=== PATIENT | female | born 1970 | race Caucasian/White ===

== ENCOUNTER 2025-01-18 03:10 | Inpatient (IN) | payer MEDICAID ==
[~2025-01-18] VITALS: Ht 154.9 cm; Wt 70.0 kg
[2025-01-18] VITALS (23 sets, daily range): BP systolic 102–134; BP diastolic 58–76; PULSE 84–136; RESP 16–41; TEMP 97.3–100.2; O2SAT 94–98
--- NOTE | 2025-01-18 03:19 | Physician Documentation ---
History of Present Illness ~ Chief Complaint: Chest Pain Stated Complaint: CHEST PAIN Time Seen by MD: 03:18 HPI Patient presents to the emergency room sent from [facility] with chief complaint of chest pain. Workup there resulted in showing moderate pericardial effusion. Recent imaging confirms that this effusion is new over the past 1-2 weeks. The transferred here for further investigation and possible intervention. Patient denies history of atrial fibrillation however EMS reports that patient did have a run of atrial fibrillation EN route which was abolished with metoprolol Medication Reconciliation Allergies: Coded Allergies: No Known Allergies (Unverified , 01/18/25) Scheduled Amlodipine Besylate (Amlodipine Besylate), 1 TAB PO DAILY, (Reported) Fluoxetine HCl (Fluoxetine HCl), 1 TAB PO DAILY, (Reported) Furosemide (Furosemide), 1 TAB PO DAILY, (Reported) Potassium Chloride* (K-Dur*), 1 TAB PO DAILY, (Reported) Miscellaneous Medications Aspirin (Adult Low Dose Aspirin EC), (Reported) Atorvastatin Calcium (Atorvastatin Calcium), (Reported) [Albuterol], (Reported) Review of Systems ROS All review of systems negative except as per HPI Physical Exam Vital Signs: Temperature: 98.2, Source: Oral, Heart Rate: 105, Respiratory Rate: 18, BP: 97/77, Pulse Oximetry: 96, Weight: 75.910 Oxygen Flow Rate: 0 Physical Exam General: Patient is awake, alert, oriented x4 in no acute distres Head: Normocephalic and atraumatic. Eyes: Conjunctival normal. EOMI. PERRL. ENT: Mucous membranes moist. Neck: Supple, trachea is midline. Chest: Clear to auscultation bilaterally without rales, rhonchi, or wheezes. There is no accessory muscle use or retractions. Cardiac: Tachycardic and regular without murmurs, gallops, or rubs. Abd: Soft, nondistended, nontender, with normoactive bowel sounds. No guarding, rebound, or rigidity. Progress Results/Orders Results/Orders Orders - PORTER DELGADO MD Page Hospitalist (01/18/25 03:26) Fill Out Med Reconciliation (01/18/25 03:26) Completed Orders - PORTER DELGADO MD Cbc/Diff (01/18/25 03:26) MG (01/18/25 03:26) BMP (01/18/25 03:26) Pt Inr (01/18/25 03:26) Hs Troponin I W Calculations (01/18/25 03:26) Procalcitonin (01/18/25 04:04) Vital Signs 01/18/25 01/18/25 01/18/25 01/18/25 03:11 03:18 03:25 04:00 Temp 98.2 Pulse 105 98 103 Resp 18 18 20 B/P (MAP) 97/77 96/48 (64) 102/62 (75) Pulse Ox 96 97 96 O2 Flow Rate 0 0 0 01/18/25 05:00 Pulse 101 Resp 20 B/P (MAP) 115/66 (82) Pulse Ox 96 O2 Flow Rate 0 Laboratory Tests Test 01/18/25 03:15 White Blood Count 18.6 H Red Blood Count 4.77 Hemoglobin 12.9 Hematocrit 38.4 Mean Corpuscular Volume 80.4 Mean Corpuscular Hemoglobin 26.9 L Mean Corpuscular Hemoglobin Concent 33.5 Red Cell Distribution Width 12.9 Platelet Count 314 Mean Platelet Volume 9.0 Neutrophils (%) (Auto) 78.9 H Lymphocytes (%) (Auto) 9.8 L Monocytes (%) (Auto) 10.9 Eosinophils (%) (Auto) 0 Basophils (%) (Auto) 0.4 Neutrophils # (Auto) 14.7 H Lymphocytes # (Auto) 1.8 Monocytes # (Auto) 2.0 H Eosinophils # (Auto) 0.0 Basophils # (Auto) 0.1 CBC Comment Prothrombin Time 14.1 H INR International Normalized Ratio 1.4 Coagulation Comments Sodium Level 137 Potassium Level 4.4 Chloride Level 104 Carbon Dioxide Level 25.0 Anion Gap 8 Blood Urea Nitrogen 16 Creatinine 0.69 Estimated GFR/1.73 m2 89 BUN/Creatinine Ratio 23.2 H Glucose Level 123 H Calcium Level 8.6 Magnesium Level 2.1 Troponin I High Sensitivity 12 Albumin 2.1 L Procalcitonin 0.45 Chemistry Comments EKG/XRAY/CT/US/VASC/MRI EKG : Additional Comment EKG interpreted by myself shows time of 0317, rate 97, sinus rhythm, normal axis, no ST changes, T-wave inversion in lead V1 and V2 Medical Decision Making Additional information obtaine: old records Findings Patient presents to the emergency room for evaluation of pericardial effusion sent from [facility] Patient both signs are reassuring and he had not believe she is in danger of any imminent cardiac tamponade we will admit for further investigation and possible intervention. Heart Score: 3 Differential Dx:Considerations: Include: angina, aortic dissection, chest wall pain, cholelithiasis, CHF, costochondritis, esophageal reflux/spasm, gastritis, herpes zoster, myocardial infarction, pericarditis, pleuritis, pancreatitis, pneumonia, pneumothorax, pulmonary embolus, other Departure Admitted to Inpatient Unit: yes, to hospitalist Impression: Primary Impression: Chest pain Additional Impression: Pericardial effusion Condition: Guarded Referrals: NO PRIMARY CARE PROVIDER (PCP) Critical Care Note Total Time (mins): 30 Critical Care Note The very real possibility of a deterioration of this patient's condition required the highest level of my preparedness for sudden, emergent intervention. I provided critical care services, which included medication orders, frequent reevaluations of the patient's condition and response to treatment, ordering and reviewing test results, and discussing the case with various consultants. Excludes time spent performing separately billable procedures. The critical care time associated with the care of the patient was 30 minutes not counting procedures Signature Scribe Signature: No scribe Attestation: The note accurately reflects work and decisions made by me.Porter Delgado MD 01/18/25 03:26 PORTER DELGADO MD Jan 18, 2025 03:18
[2025-01-18] MEDS ORDERED: FURO20TA4 PO (03:25)
[2025-01-18] MEDS ORDERED: FLUO20TA28 PO (03:25)
[2025-01-18] MEDS ORDERED: POTA-207 PO (03:25)
[2025-01-18] MEDS ORDERED: ASPI-500 (03:25)
[2025-01-18] MEDS ORDERED: ALBUTEROL (03:25)
[2025-01-18] MEDS ORDERED: ATOR40TA72 (03:25)
[2025-01-18] MEDS ORDERED: AMLO5TAB16 PO (03:25)
[2025-01-18 03:39] LABS: CREATININE 0.69 MG/DL (0.40-0.90); TOTAL CARBON DIOXIDE 25.0 MMOL/L (24-32); eCRCL 71 ML/MIN; eGFR 89 ML/MIN
[2025-01-18 03:40] LABS: INR 1.4 INR
[2025-01-18 03:44] LABS: MEAN PLATELET VOLUME 9.0 FL (7.4-10.4); RED CELL DISTRIBUTION WIDTH 12.9 % (11.5-14.5)
[2025-01-18] MEDS ORDERED: ondansetron/PF 4mg/2ml inj IV PRN (05:40)
[2025-01-18] MEDS ORDERED: magnesium sulf-water 4G/100mL 100 ML IV PRN (05:40)
[2025-01-18] MEDS ORDERED: magnesium sulf-water 2g/50mL 50 ML IV PRN (05:40)
[2025-01-18] MEDS ORDERED: magnesium Cl slow-release 64mg tablet PO PRN (05:40)
[2025-01-18] MEDS ORDERED: potassium Cl 40MEQ/1/2NS 520ml 520 ML IV PRN (05:40)
[2025-01-18] MEDS ORDERED: potassium Cl 20 mEq SR tablet PO PRN ×2 (05:40)
--- NOTE | 2025-01-18 05:59 | HISTORY AND PHYSICAL-Residence ---
History & Physical Providers to CC Resident Creating Document: VIOLETA GUZMÁN RES CC: RENATO SIMS MD ~ History of Present Illness Primary Medical Doctor: Dr. Hola Siddiqui Reason for Admit\Complaint: Chest pain for a month History of Present Illness 54-year-old female with past medical history of congestive heart failure, methamphetamine abuse, hypertension, hyperlipidemia, CVA with no residual deficit came as a transfer from [facility] for further evaluation of pericardial effusion Patient initially presented to the ER of the transferring facility for chest pain for a month. She describes chest pain over the center of the chest, dull, not radiating to shoulders or jaws, aggravated with exertion and relieved with rest. Chest pain is associated with cough which is dry cough. She noticed increase in cough when lying down. At the same time patient also notices shortness of breaths which progressive from class one to class three. She is unable to two her less than usual activities like walking to a washroom without feeling short of breath. She does have orthopnea. Denies pedal edema She also had low-grade fevers for almost a month. She said fever last for 20-30 mins before defervescence. Denies any arthralgias or myalgias or rash. No history of exposure to sick persons. No history of recent contact. She has a dog at her home Denies palpitations however she had occasional lightheadedness with no falls Denies previous history of connective tissue disorders. History of an 40 years ago in 1st trimester. No family history of connective tissue disorders. History of COPD in mom Course at the transferring facility -for chest pain evaluation troponins were negative, proBNP was mildly elevated to 317, WBC 16.9 with D-dimer 7.93. CTA chest done which showed no pulmonary embolism but [id number] pericardial effusion. -she also had AFib with RVR with heart rates of 150-IV metoprolol 5 mg given and converted to sinus -transferred here for Cardiology evaluation and echo Allergies: Coded Allergies: No Known Allergies (Unverified , 01/18/25) Home Medications Home Medications Active Reported Fluoxetine HCl 20 Mg Tablet 1 Tab PO DAILY Amlodipine Besylate 5 Mg Tablet 1 Tab PO DAILY Furosemide 20 Mg Tablet 1 Tab PO DAILY Adult Low Dose Aspirin EC (Aspirin) 81 Mg Tablet. [Albuterol] Atorvastatin Calcium 40 Mg Tablet K-Dur* (Potassium Chloride) 20 Meq Tab.prt.sr 1 Tab PO DAILY Past Medical History Past Medical History History of heart failure Hypertension Hyperlipidemia History of CVA- right-sided brain bleed five years ago Past Surgical History Surgical History Comment Hysterectomy Cholecystectomy Past Social History Social History Comment Ex-smoker, quitted smoking three months ago, history of 20 pack years Denies alcohol intake, last alcohol intake was a year ago Admits to methamphetamine smoking, last done three months ago Denies other illicit drug use/injectable drug use Currently homeless, lives in a in [facility] Constitutional: Patient is having chronic fevers for the past one month associated with decreased appetite, lightheadedness N HEENT: No blurring of the vision, No sore throat, epistaxis, tinnitus Cardiovascular: Positive for chest pain/discomfort, shortness of breath, cough, Respiratory: No hemoptysis Gastrointestinal: No abdominal pain, nausea, vomiting. No diarrhea, constipation, melena. Genitourinary: No frquency, urgency, incontinence, nocturia. No dysuria, hematuria Musculoskeletal: No arthralgia, myalgia Endocrine: No, polydipsia, polyuria. No heat or cold intolerance Neurologic: No headache, vertigo. No weakness, numbness or tingling of extremities Psychiatric: No hallucinations/delusions, no anhedonia, no suicidal ideation\ Hematologic: No bleeding or bruises Reviewed in full. All negative except for pertinent positives in HPI Exam Vitals: Vital Signs Date Time Temp Pulse Resp B/P (MAP) Pulse Ox O2 Delivery O2 Flow Rate FiO2 01/18/25 03:25 98 20 96/48 (64) 97 0 01/18/25 03:11 98.2 General: General: Pleasant adult female, appears to be in mild respiratory distress when talking Head: Normocephalic with an atraumatic Eyes: Pupils- 3mm, reacting to light, conjunctiva- anicteric Nose and throat: No polyps, septum- normal, no mucosal ulcers Neck: Supple, , no carotid bruit Respiratory: No use of accessory muscles of respiration, bilateral decreased breath sounds present, mild wheezing present on both sides Cardiac: S1-S2 heard, rythm regular, not able to hear any murmurs Abdomen: non distended, no tenderness, no organomegaly, bowel sounds- heard Extremities: no clubbing, no pedal edema, no deformities, peripheral pulses- 2+ Skin: warm and dry, no rash, no purpura Neuro: No focal deficit, gross cranial nerve exam- normal Diagnostic Data Last Recorded Lab Results: 01/18/2531401/[id number]/[id number] Diagnostic Data: Laboratory Tests Test 01/18/25 03:15 Prothrombin Time 14.1 SECONDS (9.0-12.0) H INR International Normalized Ratio 1.4 INR Coagulation Comments Advance Care Planning Advanced Care plannin - 30 Minutes (Code status is discussed with her and she opted for full code with her mother as alternate POA) Additional Plan 54-year-old female with past medical history of congestive heart failure, methamphetamine abuse, hypertension, hyperlipidemia, CVA with no residual deficit came as a transfer from [facility] for further evaluation of pericardial effusion. She presented with one month duration of chest pain dull, center of chest, nonradiating, nocturnal cough, exertional dyspnea, class three, orthopnea, low- grade fevers for a month. Course at the transferring facility -for chest pain evaluation troponins were negative, proBNP was mildly elevated to 317, WBC 16.9 with D-dimer 7.93. CTA chest done which showed no pulmonary embolism but [id number] pericardial effusion. -she also had AFib with RVR with heart rates of 150-IV metoprolol 5 mg given and converted to sinus Pericardial effusion -EKG-sinus rhythm, normal voltage complexes, inversions in V2 V3, RSR-in V1, deep S-wave in V4 V5, troponins negative -currently hemodynamically stable with with blood pressure of 106/60 mm hg -2D echo pending -follow up on TSH, RAMON, HIV testing -monitor hemodynamics -Cardiac consult with Dr.Mo Linn initiated, they recommended to inform Dr. Romero, Dr. Romero informed Chronic fever for evaluation Possible infective endocarditis -presented with chronic fevers, however no symptoms of myalgias or arthralgias rash. -WBC-18.6 with neutrophilic leukocytosis, procalcitonin 0.45, follow up on ESR, CRP -pending urinalysis, urine cultures, blood cultures, chest x-ray -empirically started on IV Rocephin 2 g once daily and IV vancomycin pharmacy to dose for possible infectious endocarditis New onset AFib with RVR Chads Vasc-5 -Currently in sinus -monitor heart rate, follow up on echo and based on ejection fraction if patient reverted back to AFib and start on either beta blockers or calcium channel blockers -based on her CHADS-VASc score she needs anticoagulation -in anticipation of pericardiocentesis, not started on DOAC. Transitioned to DOAC after pericardiocentesis. Currently on heparin 5000 subQ b.i.d. Chronic heart failure with unknown ejection fraction -follow up on echo, currently euvolemic with soft blood pressure -home Lasix on hold Hypertension -patient was taking amlodipine at home, currently on hold in view of soft blood pressures Hyperlipidemia -follow up on lipid panel -continue home dose of atorvastatin History of CVA with no focal residual deficits -currently no symptoms Methamphetamine abuse -patient stated she stopped three months ago -social work job titles and substance abuse navigator consulted Nicotine abuse -ex-smoker, quitted three months ago with history of 20 pack years Code Status: Full code Line/tube: PIV DVT prophylaxis: Heparin Nutrition: Heart healthy diet PT: Yes Prognosis: Guarded Disposition: Continue care in PCU, Cardiac consult Pending, med rec pending Violeta Guzmán MD IM PGY-3 resident Attending Physician Attestation Evaluation via HIPAA compliant A/V device. I discussed the case with the resident and I agree with the resident's documentation. 54-year-old woman with a history of polysubstance abuse, congestive heart failure, essential hypertension, dyslipidemia and prior stroke without residual deficits who now presents from an outside hospital with chest pain. Diagnostic evaluation reveals a small-moderate size pericardial effusion without tamponade physiology and new-onset atrial fibrillation; the latter converted to SR with a single dose of metoprolol. The treatment plan includes: Repeat echocardiogram to assess for an increase in size of the pericardial effusion. HIV, PPD/Quantiferon, Coxsackie and screening autoimmune serologies. Mammogram and colonoscopy if clinically indicated to screen for malignancy. Cardiology evaluation with, at their discretion, diagnostic/therapeutic pericardiocentesis. Time spent 50 minutes. Date of Service: Jan 18, 2025 Billing Provider: RENATO SIMS MD, HARIVARSHA, HUBER Jan 18, 2025 05:59 RENATO SIMS MD Jan 18, 2025 07:03
--- NOTE | 2025-01-18 06:15 | ELECTROCARDIOGRAPH REPORT ---
[facility] Test Date: 2025-01-18 Test Time: 03:17:27 Pat Name: KAMARI JOHNSON Department: EMERGENCY ROOM Room: [place] [address] Gender: F Imaging Technologist: PETERSON : 1970 Requested By: RENATO SIMS Order Number: [id number] Reading MD: Dr. JADA Díaz Measurements Intervals [place] Rate: 97 P: 45 WI: 153 QRS: 93 QRSD: 82 T: 33 QT: 361 QTc: 459 Interpretive Statements Sinus rhythm Borderline right axis deviation Borderline T abnormalities, anterior leads Electronically Signed On 01-18-2025 17:28:[address] JADA Díaz Please click the below link to view image of tracing.
[2025-01-18] MEDS: PERFLUTREN PROTEIN-A MICROSPHR (Optison) 0.22 MG/ML 3ML VIAL IV ONE (06:19)
--- NOTE | 2025-01-18 06:33 | RADIOLOGY REPORT ---
MEDICAL RECORDS NUMBER: [id number] PROCEDURE: DI CHEST,SINGLE VIEW DATE: 01/18/2025 06:15 AM HISTORY: pericardial effusion Views:1 COMPARISON: None FINDINGS/IMPRESSION: Lungs: The lungs are clear. Mediastinum: The heart size appears prominent. Mediastinal structures otherwise appear unremarkable.. Skeletal: The skeletal structures appear unremarkable.
[2025-01-18] MEDS: K and/or MAG REPLACEMENT MC SCH (06:39)
[2025-01-18] MEDS: VANCOMYCIN 2GM/400ML H20 (PEG) 400 ML IV ONE (06:39)
[2025-01-18] MEDS: docusate sod 100mg capsule PO SCH (06:39)
[2025-01-18] MEDS: CefTRIAXone 2gm/D5W 50ml BAG 50 ML IV SCH (06:39)
[2025-01-18 07:29] LABS: CHOL/HDL RATIO 2.3 (0.00-4.99); CREATININE 0.78 MG/DL (0.40-0.90); LDL CHOLESTEROL 45 MG/DL (50-100); PRO BRAIN NATRIURETIC PEPTIDE 1416 PG/ML (0-125); TOTAL CARBON DIOXIDE 26.6 MMOL/L (24-32); eCRCL 63 ML/MIN; eGFR 77 ML/MIN
[2025-01-18] MEDS ORDERED: enoxaparin 40mg/0.4ml syringe SUBCUT SCH (08:00)
[2025-01-18] MEDS: heparin, porcine 5000 units/ml vial SQ SCH (08:00)
[2025-01-18 08:28] LABS: LEUKOCYTE ESTERASE ,URINE NEGATIVE (Neg); NITRITES, URINE NEGATIVE (Neg); OCCULT BLOOD,URINE TRACE-INTACT (Neg)
[2025-01-18 08:29] LABS: UA COLLECTION TYPE VOIDED
[2025-01-18] MEDS: ipratropium/albuterol 3ml nebule NEB PRN (08:34)
[2025-01-18 08:38] LABS: URINE AMPHETAMINE SCREEN NEGATIVE (Neg); URINE BARBITUATE SCREEN NEGATIVE (Neg); URINE BENZODIAZEPINES SCREEN NEGATIVE (Neg); URINE CANNABINOID SCREEN POSITIVE (Neg); URINE COCAINE SCREEN NEGATIVE (Neg); URINE METHADONE SCREEN NEGATIVE (Neg); URINE OPIATE SCREEN NEGATIVE (Neg); URINE PHENCYCLIDINE SCREEN NEGATIVE (Neg)
[2025-01-18 08:42] LABS: MUCUS STRANDS FEW /LPF (Neg); SQUAMOUS EPITHELIAL CELL,UR MODERATE /LPF (FEW)
[2025-01-18 08:49] LABS: HIV ANTIBODY 1&2 RAPID NON-REACTIVE (Neg)
[2025-01-18] MEDS: diazepam inj 5 MG/ML inj. IV ONE ×2 (08:49→23:41)
--- NOTE | 2025-01-18 12:57 | CONSULTATION REPORT ---
Cardiac Consultation Report Providers to CC ~ Subjective Subjective Cardiology consultation: Pericardial effusion sinus tachycardia shortness of breath. Chest pain for one month duration. Patient has positive urine culture for fentanyl and THC. Records unclear if she received fentanyl loud she recalls receiving Ativan. Denies methamphetamine use in the recent past. She is a fair historian appears very anxious and agitated and she has had a prior cerebral bleed by the old records. Thyroid has returned showing that she is hyperthyroid. Echocardiogram has been reviewed RVSP pressure is 85 right ventricle is much larger than the left and hypokinetic left ventricular contractility is normal. The posterior pericardial effusion no anterior. 1 cm or less. No echo cardiographic evidence of tamponade. CT pulmonary angio and CT [facility] abdomen at [facility] were reported as unremarkable. Medications are fluoxetine amlodipine furosemide. Aspirin. Atorvastatin potassium. History of right hemisphere brain bleed five years ago by records hypertension hyperlipidemia. History of heart failure. Status post hysterectomy and cholecystectomy from old records. Was last at [facility]. Objective Vitals Vital Signs Date Time Temp Pulse Resp B/P (MAP) Pulse Ox O2 Delivery O2 Flow Rate FiO2 01/18/25 12:08 36 Nasal Cannula 2.0 21 01/18/25 12:00 115 117/69 (85) 01/18/25 10:50 94 01/18/25 10:10 100.2 Lab Results: 01/18/25 0315 01/18/25 0638 Objective She is on oxygen tachypneic restless uncomfortable complaining of chest pain non stopped. Troponins are normal Carotid no bruit chest clear to auscultation percussion heart S3 gallop. No pericardial rub. No pleural rub. Peripheral edema peripheral pulses are intact. Alert oriented restless with anterior chest pain. Worse when lying down. Coagulation Studies Laboratory Tests Test 01/18/25 03:15 Prothrombin Time 14.1 SECONDS (9.0-12.0) H INR International Normalized Ratio 1.4 INR Coagulation Comments Problem\Assessment\Plan Additional Plan Impression: Symptomatic pericarditis and symptomatic hyper thyroidism. No clinical evidence of pericardial tamponade. Patient has pulmonary hypertension with right ventricular enlargement and hypokinesis consistent with pulmonale. Recommendation: Initiate Toradol treatment anti-inflammatories and methimazole to control her pericarditis and hyperthyroidism. Ideally she should have an endocrinology consultation which I do not think is available in hospital setting. She empirically received a dose of vancomycin based on her past history of drug use. Would perform three sets of blood cultures. No urgent need of pericardiocentesis at this time. Furthermore she is so restless that she would not be able to hold still for a procedure. Would require anesthesia. YOSEPH CHAMBERLAIN MD Jan 18, 2025 12:57
[2025-01-18] MEDS: propranolol 10mg tablet PO SCH (15:37)
--- NOTE | 2025-01-18 15:51 | RADIOLOGY REPORT ---
CLINICAL INDICATION: Rheumatoid arthritis TECHNIQUE: Bilateral DI HAND,LIMITED (AP/LAT), DI HAND,LIMITED (AP/LAT) Comparison: None FINDINGS/IMPRESSION: : There is no evidence of acute fracture or dislocation. Soft tissues are unremarkable.
[2025-01-18] MEDS: VANCOmycin 1250MG/NS 250ml Bag 250 ML IV SCH (17:14)
--- NOTE | 2025-01-18 17:41 | CARDIOLOGY REPORT ---
APPROVED REPORT EXAM: Comprehensive 2D, Doppler, and color-flow Echocardiogram. Patient Location: ER 3 Blood Pressure: 92/51 mmHg Heart Rate: 103 bpm Rhythm: SINUS TACHYCARDIA Indications PERICARDIAL EFFUSION CONGESTIVE HEART FAILURE METHAMPHETAMINE USE HYPERTENSION HYPERLIPIDEMIA CHEST PAIN X1 MONTH Bioinformatics Assistant: Luther Romero MD (consult) Previous echo: none 2D Dimensions RVDd 4.6 cm LA Diam 5.9 cm RA Major 6.1 cm RA Minor 5.4 cm LVOT Diameter 2.21 (1.8-2.4cm) Ao Asc Diam. 3.50 cm IVC 21.01 mm CO 6.0 L/min M-Mode Dimensions Left Atrium(MM) 3.71 (2.5-4.0cm) IVSd 0.95 (0.7-1.1cm) LVDd 4.00 (4.0-5.6cm) Aortic Root 3.21 (2.2-3.7cm) PWd 0.86 (0.7-1.1cm) Aortic Cusp Exc 2.14 (1.5-2.0cm) IVSs 1.44 cm LVDs 2.10 (2.0-3.8cm) FS (%) 47 % PWs 1.28 cm ESV(Teich) 14.4 ml LVEF(%) 79 (>50%) Biplane 2D LA Volumes LA ESV Index 31.40 mL/m2 Aortic Valve AoV Peak Dixon. 173.8 cm/s AoV VTI 28.9 cm AO Peak GR. 12.1 mmHg AO Mean GR. 8 mmHg LVOT VTI 26.49 cm LVOT Peak Dixon. 151.1 cm/s SYED(VTI)/BSA 3.53 cm2/m2 SYED (VTI) 3.53 cm2 AV DI 0.92 % Mitral Valve MV E Velocity 93.4 cm/s MV Peak Gr. 5 mmHg MV DECEL TIME 172 ms MV A Velocity 65.8 cm/s MV PHT 56 ms E/A Ratio 1.4 MVA (PHT) 3.93 cm2 MV VMax 116.7 cm/s TDI Medial E' P. V 10.18 cm/s E/Medial E' 9.2 Tricuspid Valve TR P. Velocity 432 cm/s RAP ESTIMATE 10 mmHg TR Peak Gr. 75 mmHg RVSP 85 mmHg Pulmonary Vein S1 Velocity 57.1 cm/s D2 Velocity 48.2 cm/s PVa Velocity 34.6 cm/s PVa Duration 88 msec LEFT VENTRICLE Normal LV size and wall thickness. Overall systolic function is hyperdynamic. LVEF is 75-80%. RIGHT VENTRICLE RV is moderately dilated with mildly reduced systolic function. RVSP is estimated at 85 mmHg. ATRIA LA size is normal. AORTIC VALVE Trileaflet AV appears mildly sclerotic without stenosis or insufficiency. MITRAL VALVE Mild MV annular calcification without stenosis. Trace regurgitation. TRICUSPID VALVE TV appears structurally normal with moderate septally-directed regurgitation. PULMONIC VALVE Normal PV without stenosis, physiologic insufficiency. GREAT VESSELS The aortic root is normal in size. The ascending aorta is normal in size. IVC is dilated and collapses greater than 50% with inspiration. PERICARDIUM Mild circumferential pericardial effusion with beginning signs of hemodynamic compromise. MV respiratory variation visualized, although difficult to evaluate due to patient's fast breathing rate. No RV diastolic collapse visualized, however RA collapse is present. Other Information Study Quality: Adequate
[2025-01-18] MEDS ORDERED: VANCOMYCIN 1GM 200ML H20 (PEG) 200 ML IV SCH (18:00)
[2025-01-18] MEDS: ketorolac trometh 30MG/ML vial 30 MG/ML VIAL IV SCH (19:19)
--- NOTE | 2025-01-18 22:29 | ELECTROCARDIOGRAPH REPORT ---
[facility] Test Date: 2025-01-18 Test Time: 22:26:26 Pat Name: KAMARI JOHNSON Department: [facility] 3S Patient ID: [id number] Room: [place] [address] A Gender: F Extension Clerk: : 1970 Requested By: RUSSELL MOTA Order Number: [id number] Reading MD: Dr. Rebecca Linn Measurements Intervals [place] Rate: 129 P: 0 UT: 0 QRS: 91 QRSD: 83 T: 66 QT: 384 QTc: 563 Interpretive Statements Atrial flutter/fibrillation ? Inferoposterior infarct, acute (LCx) Electronically Signed On 01-19-2025 6:52:[address] Rebecca Linn Please click the below link to view image of tracing.
[2025-01-18] MEDS: metoprolol tartrate 1mg/ml inj IV ONE (22:36)
[2025-01-19] VITALS (22 sets, daily range): BP systolic 93–121; BP diastolic 47–72; PULSE 73–91; RESP 15–42; TEMP 96.9–98.2; O2SAT 94–97
[2025-01-19 06:50] LABS: MEAN PLATELET VOLUME 8.9 FL (7.4-10.4); RED CELL DISTRIBUTION WIDTH 12.9 % (11.5-14.5)
[2025-01-19 07:00] LABS: INR 1.3 INR
[2025-01-19 07:27] LABS: CREATININE 0.60 MG/DL (0.40-0.90); PHOSPHORUS 3.3 MG/DL (2.3-4.5); TOTAL CARBON DIOXIDE 27.0 MMOL/L (24-32); eCRCL 82 ML/MIN; eGFR > 90 ML/MIN
--- NOTE | 2025-01-19 15:17 | PROGRESS NOTE ---
Progress Note Cardiology Providers to CC ~ Subjective Subjective Cardiology progress note: Diagnosis one pericarditis 2. Hyperparathyroidism consider viral induced 3. RVSP 85 mm Hg with right ventricular enlargement and hypokinesis. Symptoms improved since initiation of therapy. Labs improved. Objective Result Diagram: 01/19/25 0632 01/19/25 0632 Objective Tachypnea improved heart rate improved. She has been improved. Cardiovascular examination unchanged. Coagulation Studies Laboratory Tests Test 01/19/25 06:32 Prothrombin Time 12.8 SECONDS (9.0-12.0) H INR International Normalized Ratio 1.3 INR Coagulation Comments Other Results Echocardiogram pending. Problem\Assessment\Plan Additional Plan Assessment: Improved. Recommendation: continue present management. He has pericarditis does not improve would add steroids. Maybe having viral pericarditis with viral thyroiditis in that case steroids would be beneficial. YOSEPH CHAMBERLAIN MD Jan 19, 2025 15:17
[2025-01-19] MEDS: VANCOMYCIN LEVEL IV ONE (16:30)
--- NOTE | 2025-01-19 21:15 | PROGRESS NOTE- Residence ---
Progress Note - Resident Providers to CC Resident Creating Document: SADI MAGANA RES ~ Antibiotic Timeout Antibiotic Ordered?: Yes Subjective Seen and examined patient at bed side, Patient reports mild chest discomfort and improvement in her symptoms Objective Vital Signs Date Time Temp Pulse Resp B/P (MAP) Pulse Ox O2 Delivery O2 Flow Rate FiO2 01/19/25 20:30 78 20 97 Room Air* 0 21 01/19/25 17:00 121/66 (84) 01/19/25 15:00 98.2 Result Diagram: 01/19/25 0632 01/19/25 0632 Awake , alert, and oriented , in mild distress HEENT: Atraumatic, normocephalic, EOMI, anicteric sclera ; pink conjunctiva Neck: Trachea midline. Supple, full range of motion, no JVD Cardiac: Regular rhythm, regular rate with no murmurs all over the precordium. Respiratory: Equal breath sounds bilaterally, no tachypnea, no wheezing ,rub or rales, Chest wall is symmetric and without deformity. Gastrointestinal: Abdomen symmetric, non-distended, soft, non-tender, normal bowel sounds x4 quadrant, normoactive, no hepatosplenomegaly Musculoskeletal: No pedal edema Neurological: Mental status exam: alert and consciousness, orientation, memory, speech - Cranial nerve test: Cranial nerves 2-12 intact - Motor system: Normal Nutrition, normal tone, Power 5/5, no involuntary movements - Sensory system: Intact - Reflex testing: Biceps, triceps and knee reflexes 2+ - Cerebellar: Normal Skin: Warm and dry Extremities : No Edema, peripheral pulses felt, No deformities Psychiatric:Appropriate mood and affect,No hallucinations or suicidal ideation Coagulation Studies Laboratory Tests Test 01/19/25 06:32 Prothrombin Time 12.8 SECONDS (9.0-12.0) H INR International Normalized Ratio 1.3 INR Coagulation Comments Advance Care Planning Advanced Care plannin - 30 Minutes Assessment Assessment A 54-year-old female with past medical history of congestive heart failure, methamphetamine abuse, hypertension, hyperlipidemia, CVA with no residual deficit came as a transfer from [facility] for further evaluation of pericardial effusion and Afib with RVR Plan Plan Chronic Chest pain 2/2 Pericardial effusion 2/2 Probably Hyperthyroidism no echo e/o or clinical signs of Cardiac tamponade RAMON: Negative, HIV testing: Non reactive F/u with Rf and anticcp Conservative management with IV Tordol 30mg per Dr. Romero recommendations. Appreciate recs New onset AFib with RVR 2/2 Hyperthyroidism [id number]: 5 Currently on sinus rhythm, rate controlled Cardiology recommended * no Elliquis at this time as afib 2/2 hyperthyroidism * Aspirin to be continued Appreciate recs Chronic fever under evaluation Subacute Infective Endocaridits vs chronic untreated dental infection vs Untreated hyperthyroidism Autoimmune conds ruled out in view of negative RAMON Subacute endocarditis less likely as TTE negative for vegetations, Loyd's criteria not met. 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 Au, (Pulm and critical care) History of anxiety/depression Started home med fluoxetine Hypertension Patient uses amlodipine at home, currently on hold in view of soft blood pressures Hyperlipidemia LDL: 45 Continue home dose of atorvastatin History of Asthma/COPD Continue duonebs q4h prn History of CVA with no focal residual deficits -currently no symptoms Methamphetamine abuse -patient stated she stopped three months ago -social and human services assistant and substance abuse navigator consulted Nicotine abuse -ex-smoker, quit three months ago with history of 20 pack years Code Status: Full code Line/tube: PIV DVT prophylaxis: Heparin Nutrition: Heart healthy diet PT: Yes Prognosis: Guarded Disposition: Continue care in PCU Sadi Magana PGY1-Internal Medicine Resident Assessment and plan reviewed by PGY2/PGY 3 and agree with the above assessment and plan except for the edits made. Abigail Camarillo MD Internal Medicine, PGY2 Date of Service: Jan 19, 2025 Billing Provider: FROILAN BERUMEN MD Common Visit Codes: [id number] INP/OBS CARE(HIGH) SADI MAGANA, RES Jan 19, 2025 21:15 ABIGAIL CAMARILLO, RES Jan 19, 2025 22:43 FROILAN BERUMEN MD Jan 20, 2025 07:47
[2025-01-20] VITALS (8 sets, daily range): BP systolic 97–112; BP diastolic 58–73; PULSE 69–81; RESP 13–36; TEMP 96.8–98.6; O2SAT 96–98
[2025-01-20 06:49] LABS: MEAN PLATELET VOLUME 9.0 FL (7.4-10.4); RED CELL DISTRIBUTION WIDTH 12.8 % (11.5-14.5)
[2025-01-20 07:04] LABS: INR 1.1 INR
[2025-01-20 07:29] LABS: CREATININE 0.69 MG/DL (0.40-0.90); PHOSPHORUS 3.9 MG/DL (2.3-4.5); TOTAL CARBON DIOXIDE 23.6 MMOL/L (24-32); eCRCL 71 ML/MIN; eGFR 89 ML/MIN
--- NOTE | 2025-01-20 07:40 | ELECTROCARDIOGRAPH REPORT ---
[facility] Test Date: 2025-01-20 Test Time: 07:37:45 Pat Name: KAMARI JOHNSON Department: [facility] 3S Patient ID: [id number] Room: [place] [id number] A Gender: F Jinrikisha Driver: JASE : 1970 Requested By: ADRIANNE MIRZA Order Number: [id number] Reading MD: Dr. JADA Díaz Measurements Intervals [place] Rate: 79 P: 63 AL: 146 QRS: 91 QRSD: 80 T: 55 QT: 368 QTc: 422 Interpretive Statements Sinus rhythm LAE, consider biatrial enlargement Borderline right axis deviation RSR' in V1 or V2, probably normal variant Abnormal T, consider ischemia, anterior leads Minimal ST elevation, inferior leads Electronically Signed On 01-20-2025 16:50:[address] JADA Díaz Please click the below link to view image of tracing.
--- NOTE | 2025-01-20 08:02 | RADIOLOGY REPORT ---
ULTRASOUND SOFT TISSUE HEAD AND NECK CLINICAL INDICATION: Thyroditis TECHNIQUE: Multiple real time sonographic images of the thyroid were obtained. Comparison: None FINDINGS: The right thyroid gland measures 4.5 x 2.2 x 2.1 cm. The left thyroid gland measures approximately 4.3 x 2.3 x 1.9 cm. The isthmus measures 0.3 cm. Thyroid gland is diffusely enlarged and heterogeneous and hypervascular. IMPRESSION: Diffusely enlarged, heterogeneous and hypervascular thyroid gland. This can be seen in Graves disease and/or thyroiditis. Clinical correlation advised. [employer] TI-RADS Categories and Recommendations (2017): TR1: 0 points, Benign, No FNA TR2: 2 points, Not suspicious, No FNA TR3: 3 points, Mildly suspicious, FNA if > or = 2.5 cm, Follow if > or = 1.5 cm TR4: 4-6 points, Moderately Suspicious, FNA if > or = 1.5 cm, Follow if > or = 1.0 cm TR5: 7+ points, Highly Suspicious, FNA if > or = 1.0 cm, Follow if > or = 0.5 cm Follow-up ultrasound guidelines: TR5: yearly for 5 years, if no growth or change in TI-RADS level TR4: at 1, 2, 3 and 5 years, if no growth or change in TI-RADS level TR3: at 1, 3 and 5 years, if no growth or change in TI-RADS level If increased but below threshold for FNA, repeat in one year. Source: ACR Thyroid Imaging, Reporting and Data System (TI-RADS): White Paper of the ACR TI-RADS Committee. Dony et al., J Am Gwen Radiol 2017;14:587-595.
[2025-01-20 13:17] LABS: ANTI-DSDNA ANTIBODIES <1 IU/mL (0-9)
[2025-01-20] MEDS: VANCOMYCIN/WATER FOR INJ (PEG) 1.5GM/300 ML IVPB IV SCH (17:20)
--- NOTE | 2025-01-20 20:54 | PROGRESS NOTE- Residence ---
Progress Note - Resident Providers to CC Resident Creating Document: MARVEL MAGANA RES ~ Antibiotic Timeout Antibiotic Ordered?: Yes Subjective Seen and examined patient at bedside, no overnight events recorded, patient mentioned improvement in her symptoms but she still concern of mild chest pain Objective Vital Signs Date Time Temp Pulse Resp B/P (MAP) Pulse Ox O2 Delivery O2 Flow Rate FiO2 01/20/25 18:30 72 01/20/25 18:00 97.4 28 111/65 (80) 98 Room Air 01/20/25 08:00 0.0 21 Result Diagram: 01/20/2562701/20/25627 Awake , alert, and oriented , in mild distress HEENT: Atraumatic, normocephalic, EOMI, anicteric sclera ; pink conjunctiva Neck: Trachea midline. Supple, full range of motion, no JVD, mild tenderness on palpation of neck Cardiac: Regular rhythm, regular rate with no murmurs all over the precordium. Respiratory: Equal breath sounds bilaterally, no tachypnea, no wheezing ,rub or rales, Chest wall is symmetric and without deformity. Gastrointestinal: Abdomen symmetric, non-distended, soft, non-tender, normal bowel sounds x4 quadrant, normoactive, no hepatosplenomegaly Musculoskeletal: No pedal edema Neurological: Mental status exam: alert and consciousness, orientation, memory, speech - Cranial nerve test: Cranial nerves 2-12 intact - Motor system: Normal Nutrition, normal tone, Power 5/5, no involuntary movements - Sensory system: Intact - Reflex testing: Biceps, triceps and knee reflexes 2+ - Cerebellar: Normal Skin: Warm and dry Extremities : No Edema, peripheral pulses felt, No deformities Psychiatric:Appropriate mood and affect,No hallucinations or suicidal ideation Coagulation Studies Laboratory Tests Test 01/20/25 06:28 Prothrombin Time 11.5 SECONDS (9.0-12.0) INR International Normalized Ratio 1.1 INR Coagulation Comments Advance Care Planning Advanced Care plannin - 30 Minutes Assessment Assessment A 54-year-old female with past medical history of congestive heart failure, methamphetamine abuse, hypertension, hyperlipidemia, CVA with no residual deficit came as a transfer from [facility] for further evaluation of pericardial effusion and Afib with RVR Plan Plan Chronic Chest pain 2/2 Pericardial effusion 2/2 Probably Hyperthyroidism No echocardiographic evidence or clinical signs suggestive of cardiac tamponade. RAMON: Negative; HIV test: Non-reactive., double-stranded DNA-negative Follow up with anti-CCP testing. Continue conservative approach. Continue IV ketorolac [address] Camarena recommendation. Appreciate Recommondations Begin aspirin therapy upon discharge.Appreciate cardiology input and recommendations. New onset Hyperthyroidism, uncontrolled Likely 2/2 Graves disease TSH: <0.01, Free T4: 3.29 Continue propanolol 10 mg TID and methimazole 15 mg po Thyroid ultrasound shows :Diffusely enlarged, heterogeneous and hypervascular thyroid gland. Follow up with antithyroglobulin antibody, thyroid peroxidase antibody, radio uptake scan Patient needs to follow up with outpatient endocrinology New onset AFib with RVR 2/2 Hyperthyroidism [id number]: 5 Patient remains in sinus rhythm with adequate rate control. Cardiology Recommendations: Do not initiate apixaban at this time, as atrial fibrillation is secondary to hyperthyroidism. Chronic fever under evaluation Subacute Infective Endocaridits vs chronic untreated dental infection vs Untreated hyperthyroidism Autoimmune conditions ruled out given negative RAMON. Subacute endocarditis considered unlikely: TTE shows no vegetations, [place] criteria not met. WBC trending down to 13.0. Preliminary blood cultures negative after 2 days; will follow up for final results. Empiric therapy: IV ceftriaxone (Rocephin) 2 g once daily and IV vancomycin (pharmacy to dose), currently day 3. 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 Au, (Pulm and critical care) History of anxiety/depression Started home med fluoxetine Hypertension Patient uses amlodipine at home, currently on hold in view of soft blood pressures Hyperlipidemia LDL: 45 Continue home dose of atorvastatin History of Asthma/COPD Continue duonebs q4h prn History of CVA with no focal residual deficits -currently no symptoms Methamphetamine abuse -patient stated she stopped three months ago -healthcare social worker and substance abuse navigator consulted Nicotine abuse -ex-smoker, quit three months ago with history of 20 pack years Code Status: Full code Line/tube: PIV DVT prophylaxis: Heparin Nutrition: Heart healthy diet PT: Yes Prognosis: Guarded Disposition: Continue care in PCU Marvel Magana PGY1-Internal Medicine Resident This Note has been reviewed by Pgy 2 and Pgy 3 Date of Service: Jan 20, 2025 Billing Provider: FROILAN BERUMEN MD Common Visit Codes: [id number] INP/OBS CARE(HIGH) MARVEL MAGANA, RES Jan 20, 2025 20:54 FROILAN BERUMEN MD Jan 22, 2025 06:59
[2025-01-20 21:39] LABS: CREATININE 0.81 MG/DL (0.40-0.90); eCRCL 61 ML/MIN; eGFR 74 ML/MIN
[2025-01-21 02:00] VITALS: BP 104/68; PULSE 72; RESP 22; TEMP 97.4; O2SAT 98
[2025-01-21 06:00] VITALS: BP 119/58; PULSE 63; RESP 16; TEMP 97.2; O2SAT 99
[2025-01-21 06:59] LABS: MEAN PLATELET VOLUME 8.7 FL (7.4-10.4); RED CELL DISTRIBUTION WIDTH 13.0 % (11.5-14.5)
[2025-01-21 07:09] LABS: INR 1.1 INR
[2025-01-21 07:20] LABS: CREATININE 0.60 MG/DL (0.40-0.90); PHOSPHORUS 4.5 MG/DL (2.3-4.5); TOTAL CARBON DIOXIDE 24.7 MMOL/L (24-32); eCRCL 82 ML/MIN; eGFR > 90 ML/MIN
[2025-01-21 08:00] VITALS: RESP 26; O2SAT 96
[2025-01-21] MEDS: EMPAGLIFLOZIN 10 MG TABLET PO SCH (08:15)
[2025-01-21] MEDS ORDERED: METH-1026 PO (10:57)
[2025-01-21] MEDS ORDERED: COLC0.6T78 PO (10:57)
[2025-01-21] MEDS ORDERED: ASPI-10 PO (10:57)
[2025-01-21] MEDS ORDERED: PROP10TA10 PO (10:57)
[2025-01-21 11:00] VITALS: BP 109/57; PULSE 60; RESP 17; TEMP 97.9; O2SAT 98
[2025-01-21 11:14] LABS: THYROID PEROXIDASE AB 28 IU/mL (0-34)
[2025-01-21 11:14] LABS: CYTOMEGALOVIRUS AB, IGG 6.90 U/mL (0.00-0.59); CYTOMEGALOVIRUS AB, IGM <30.0 AU/mL (0.0-29.9)
[2025-01-21 11:39] VITALS: PULSE 67; RESP 18; O2SAT 96
--- NOTE | 2025-01-21 15:26 | DISCHARGE SUMMARY-Residence ---
Discharge Summary Providers to CC Resident Creating Document: SADI MARTINEZ, RES ~ Discharge Summary Admission Diagnosis: PERICARDIAL EFFUSION Hospital Course DATE OF ADMISSION: 01/18/2025 DATE OF DISCHARGE:01/21/2025 Discharge Diagnosis\Comment: Hyperthyrodism Atrial fibrillation Likely secondary to hyperthyroid Congestive heart failure Acute pericarditis Operations\Procedures: None Consultants: Engineer Conductor - Dr Romero Complications: none Condition on DC: Stable New Medications: Aspirin (Aspirin) 325 Mg Tablet 1 TAB PO DAILY for 30 Days, #30 TAB Colchicine (Colchicine) 0.6 Mg Tablet 1 TAB PO BID for gout pain for 14 Days, #28 TAB 0 Refills Methimazole (methimazole tablet) 5 Mg Tablet 15 MG PO DAILY for 30 Days, #30 TAB Propranolol Hcl* (Inderal*) 10 Mg Tablet 10 MG PO TID for 30 Days, #90 TAB Continued Medications: [Albuterol] () Atorvastatin Calcium (Atorvastatin Calcium) 40 Mg Tablet Fluoxetine HCl (Fluoxetine HCl) 20 Mg Tablet 1 TAB PO DAILY Furosemide (Furosemide) 20 Mg Tablet 1 TAB PO DAILY Potassium Chloride* (K-Dur*) 20 Meq Tab.prt.sr 1 TAB PO DAILY Discontinued Medications: Amlodipine Besylate (Amlodipine Besylate) 5 Mg Tablet 1 TAB PO DAILY Aspirin (Adult Low Dose Aspirin EC) 81 Mg Tablet. Discharge Summary: History of Present illness This is a 54 years old female with Past Medical History of CHF, Methamphetamine abuse, HTN, Hyperlipidemia, CVA Presented to ED as Transfer from [facility] for further evaluation of pericardial effusion her staff radiation therapist complains at the time of presentation was chest pain and shortness of breath. Course at the transferring facility shows Mild to moderate pericardiacal effusion, Afib with RVR at 150s recieved metaprolol 5mg and converted to sinus rhytm Hospital course The patient, a 54-year-old female with a history of congestive heart failure and methamphetamine use, was transferred from an outside facility for chest pain and new-onset atrial fibrillation after imaging revealed pericardial effusion with concern for tamponade. On arrival, she was hemodynamically stable; cardiology was consulted, and IV Toradol 30 mg was administered. Autoimmune panel, thyroid function tests, and viral panel were ordered. Results showed negative autoantibodies and viral panel, but thyroid studies revealed low TSH and elevated T4. She was started on propranolol and methimazole, and thyroid ultrasound demonstrated diffuse goiter consistent with Graves disease; thyroid peroxidase antibodies were sent. . The patients symptoms improved, and she was discharged in stable condition on aspirin, colchicine, methimazole, and propranolol, with recommendations for endocrinology and primary care follow-up and repeat echocardiogram in one month. Physical Examination Awake , alert, and oriented , in mild distress HEENT: Atraumatic, normocephalic, EOMI, anicteric sclera ; pink conjunctiva Neck: Trachea midline. Supple, full range of motion, no JVD Cardiac: Regular rhythm, regular rate with no murmurs all over the precordium. Respiratory: Equal breath sounds bilaterally, no tachypnea, no wheezing ,rub or rales, Chest wall is symmetric and without deformity. Gastrointestinal: Abdomen symmetric, non-distended, soft, non-tender, normal bowel sounds x4 quadrant, normoactive, no hepatosplenomegaly Musculoskeletal: No pedal edema Neurological: Mental status exam: alert and consciousness, orientation, memory, speech - Cranial nerve test: Cranial nerves 2-12 intact - Motor system: Normal Nutrition, normal tone, Power 5/5, no involuntary movements - Sensory system: Intact - Reflex testing: Biceps, triceps and knee reflexes 2+ - Cerebellar: Normal Skin: Warm and dry Extremities : No Edema, peripheral pulses felt, No deformities Psychiatric:Appropriate mood and affect,No hallucinations or suicidal ideation Vital Signs Date Time Temp Pulse Resp B/P (MAP) Pulse Ox O2 Delivery O2 Flow Rate FiO2 01/21/25 11:39 67 18 96 Room Air* 0 21 01/21/25 11:00 97.9 109/57 (74) Laboratory Tests Test 01/19/25 17:23 01/19/25 23:04 01/20/25 06:28 01/20/25 08:00 Vancomycin Level Trough 11.9 ug/mL Cytomegalovirus IgG Antibody 6.90 U/mL Cytomegalovirus IgM Antibody <30.0 AU/mL Pato-Samuel Virus IgG Antibody >600.0 U/mL Pato-Samuel Virus Capsid Ag IgG Ab 121.0 U/mL Pato-Samuel Virus Capsid Ag IgM Ab <36.0 U/mL Pato-Samuel Virus Interpretation Comment White Blood Count 13.0 X10'3 Red Blood Count 4.14 X10'6 Hemoglobin 11.0 g/dl Hematocrit 33.4 % Mean Corpuscular Volume 80.6 FL Mean Corpuscular Hemoglobin 26.6 PG Mean Corpuscular Hemoglobin Concent 33.0 g/dL Red Cell Distribution Width 12.8 % Platelet Count 267 X10'3 Mean Platelet Volume 9.0 FL Neutrophils (%) (Auto) 66.5 % Lymphocytes (%) (Auto) 25.9 % Monocytes (%) (Auto) 6.7 % Eosinophils (%) (Auto) 0.5 % Basophils (%) (Auto) 0.4 % Neutrophils # (Auto) 8.7 X10'3 Lymphocytes # (Auto) 3.4 X10'3 Monocytes # (Auto) 0.9 X10'3 Eosinophils # (Auto) 0.1 X10'3 Basophils # (Auto) 0.0 X10'3 CBC Comment Prothrombin Time 11.5 SECONDS INR International Normalized Ratio 1.1 INR Coagulation Comments Sodium Level 139 MMOL/L Potassium Level 4.5 MMOL/L Chloride Level 109 MMOL/L Carbon Dioxide Level 23.6 MMOL/L Anion Gap 6 Blood Urea Nitrogen 34 MG/DL Creatinine 0.69 MG/DL Estimated GFR/1.73 m2 89 ML/MIN BUN/Creatinine Ratio 49.3 Glucose Level 84 MG/DL Calcium Level 8.3 MG/DL Phosphorus Level 3.9 MG/DL Magnesium Level 2.2 MG/DL Total Bilirubin 0.6 MG/DL Aspartate Amino Transf (AST/SGOT) 25 U/L Alanine Aminotransferase (ALT/SGPT) < 6 U/L Alkaline Phosphatase 186 IU/L Total Protein 6.3 G/DL Albumin 1.7 G/DL Globulin 4.6 G/DL Albumin/Globulin Ratio 0.4 Chemistry Comments Troponin I High Sensitivity 12 ng/L Troponin I High Sens Percent Delta 0 % Troponin I Hi Sens Absolute Change 0 ng/L Test 01/20/25 08:37 01/20/25 21:18 01/21/25 06:43 Thyroid Peroxidase Antibodies 28 IU/mL Potassium Level 4.7 MMOL/L 4.6 MMOL/L Creatinine 0.81 MG/DL 0.60 MG/DL Estimated GFR/1.73 m2 74 ML/MIN > 90 ML/MIN White Blood Count 8.1 X10'3 Red Blood Count 4.18 X10'6 Hemoglobin 11.3 g/dl Hematocrit 33.8 % Mean Corpuscular Volume 80.8 FL Mean Corpuscular Hemoglobin 27.1 PG Mean Corpuscular Hemoglobin Concent 33.6 g/dL Red Cell Distribution Width 13.0 % Platelet Count 280 X10'3 Mean Platelet Volume 8.7 FL Neutrophils (%) (Auto) 49.8 % Lymphocytes (%) (Auto) 38.9 % Monocytes (%) (Auto) 8.2 % Eosinophils (%) (Auto) 2.4 % Basophils (%) (Auto) 0.7 % Neutrophils # (Auto) 4.0 X10'3 Lymphocytes # (Auto) 3.1 X10'3 Monocytes # (Auto) 0.7 X10'3 Eosinophils # (Auto) 0.2 X10'3 Basophils # (Auto) 0.1 X10'3 CBC Comment Prothrombin Time 11.4 SECONDS INR International Normalized Ratio 1.1 INR Coagulation Comments Sodium Level 142 MMOL/L Chloride Level 111 MMOL/L Carbon Dioxide Level 24.7 MMOL/L Anion Gap 6 Blood Urea Nitrogen 29 MG/DL BUN/Creatinine Ratio 48.3 Glucose Level 87 MG/DL Calcium Level 8.1 MG/DL Phosphorus Level 4.5 MG/DL Magnesium Level 2.2 MG/DL Total Bilirubin 0.4 MG/DL Aspartate Amino Transf (AST/SGOT) 24 U/L Alanine Aminotransferase (ALT/SGPT) 19 U/L Alkaline Phosphatase 218 IU/L Total Protein 6.2 G/DL Albumin 1.6 G/DL Globulin 4.6 G/DL Albumin/Globulin Ratio 0.3 Chemistry Comments Imaging at Hospital Echocardiogram shows - LVEF is 75-80%. , RVSP is estimated at 85 mmHg. hand X ray - Normal Head/Neck USG- Diffusely enlarged, heterogeneous and hypervascular thyroid gland Discharge instructions : follow up with PCP in a week, Follow up with nitrocellulose operator in a week . Follow up with supervisor cell room and echocardiogram in 1 month. If you develop severe shortness of breath or chest pain come to Ed or call 911 New Medications Aspirin, Colchicine, Methimazole, Propronolol *Problems/Diagnosis: (1) Pericardial effusion Status: Acute Total Time Spent on D/C: Up to 30 Minutes Date of Service: Jan 21, 2025 Billing Provider: FROILAN BERUMEN MD Common Visit Codes: [id number] DISCH DAY >30min SADI MARTINEZ, RES Jan 21, 2025 15:25 FROILAN BERUMEN MD Jan 22, 2025 06:59
[2025-01-21 19:09] LABS: CCP IGG ANTIBODIES 8 units (0-19)
[2025-01-22] MEDS ORDERED: VANCOMYCIN LEVEL IV ONE (04:30)
[2025-01-22] MEDS ORDERED: APIX5TAB3 PO ×2 (07:02→09:39)
[2025-01-22] MEDS ORDERED: COLC0.6T78 PO (09:39)
[2025-01-22] MEDS ORDERED: METH-1026 PO (09:39)
[2025-01-22] MEDS ORDERED: ASPI-10 PO (09:39)
[2025-01-22] MEDS ORDERED: PROP10TA10 PO (09:39)
[2025-01-23 13:10] LABS: ANTITHYROGLOBULIN AB <1.0 IU/mL (0.0-0.9)
== END 2025-01-21 14:00 | disposition home or self-care (01) | DRG 207 ==
LOC: ER 03:11 → ED HOLD 05:44 → EDBEDREQTM 09:56 → PCU 3S 10:10
PROVIDERS: ADMIT Internal Medicine Critical Care Medicine; ATTEND Internal Medicine
DX: I31.39 Other pericardial effusion (noninflammatory) (principal); I27.20 Pulmonary hypertension, unspecified; I11.0 Hypertensive heart disease with heart failure; N39.0 Urinary tract infection, site not specified; F15.10 Other stimulant abuse, uncomplicated; F32.A Depression, unspecified; E05.00 Thyrotoxicosis with diffuse goiter without thyrotoxic crisis or storm; I48.91 Unspecified atrial fibrillation; E78.5 Hyperlipidemia, unspecified; F41.9 Anxiety disorder, unspecified; E21.3 Hyperparathyroidism, unspecified; I50.32 Chronic diastolic (congestive) heart failure; Z86.73 Personal history of transient ischemic attack (TIA), and cerebral infarction without residual deficits; Z90.710 Acquired absence of both cervix and uterus; Z90.49 Acquired absence of other specified parts of digestive tract; Z87.891 Personal history of nicotine dependence
CPT/HCPCS: 36415; 71045; 73120; 76536; 80048; 80053; 80061; 80202; 80305; 81001; 82565; 83036; 83605; 83735; 83880; 84100; 84132; 84145; 84439; 84443; 84484; 85025; 85610; 85651; 86038; 86140; 86200; 86376; 86644; 86645; 86663; 86664; 86665; 86703; 86800; 87040; 87081; 87088; 93005; 93306; 94640; 94760; 97116; 97161; 97530; 99291; A4615; A6258; A6402; G0378; J0696; J1171; J1644; J1885; J1938; J3360; J3374; J3375; J3490; J7040; J7512